=== PATIENT | female | born 1955 | race Caucasian/White ===

== ENCOUNTER → 2017-06-14 | Outpatient (CLI) | payer OTHER | LOC: BMCIMAGING 14:52 | PROVIDERS: ATTEND Obstetrics & Gynecology Gynecology | DX: Z12.31 Encounter for screening mammogram for malignant neoplasm of breast (principal); Z80.3 Family history of malignant neoplasm of breast | CPT/HCPCS: G0202 ==

== ENCOUNTER → 2018-07-23 | Outpatient (CLI) | payer OTHER | LOC: BMCIMAGING 08:34 | PROVIDERS: ATTEND Obstetrics & Gynecology Gynecology | DX: Z12.31 Encounter for screening mammogram for malignant neoplasm of breast (principal) ==

== ENCOUNTER 2018-12-02 22:47 | Emergency (ER) | payer OTHER ==
[2018-12-02 22:50] VITALS: BP 132/78
--- NOTE | 2018-12-02 23:10 | EDPHY ---
H & P Stated Complaint: Burning, painful urination, started today Time Seen by Provider: 12/02/18 22:53 HPI/ROS: Chief Complaint: Urinary urgency and frequency HPI: 63-year-old woman with no significant medical history is presenting with urinary urgency seen frequency which began this evening. Patient states she has had 3 or 4 urinary tract infections in the last year. No fevers or chills. No nausea or vomiting. No back pain. No abdominal pain. ROS: 10 systems were reviewed and were negative except those elements noted in the HPI. PMH: Denies Social History: No smoking, no alcohol, no recreational drug use Family History: non-contributory Physical Exam: Gen: Awake, Alert, No Distress HEENT: Nose: no rhinorrhea Eyes: PERRLA, EOMI Mouth: Moist mucosa Neck: Supple, no JVD Chest: nontender, lungs clear to auscultation Heart: S1, S2 normal, no murmur Abd: Soft, non-tender, no guarding Back: no CVA tenderness, no midline tenderness Ext: no edema, non-tender Skin: no rash Neuro: CN II-XII intact, Sensation grossly intact, Strength 5/5 in bilateral upper and lower extremities - Personal History Current Tetanus Diphtheria and Acellular Pertussis (TDAP): Unsure - Medical/Surgical History Hx Asthma: No Hx Chronic Respiratory Disease: No Hx Diabetes: No Hx Cardiac Disease: No Hx Renal Disease: No Hx Cirrhosis: No Hx Alcoholism: No Hx HIV/AIDS: No Hx Splenectomy or Spleen Trauma: No Other PMH: Denies - Social History Smoking Status: Never smoked Constitutional: Initial Vital Signs Temperature (C) 36.7 C 12/02/18 22:48 Heart Rate 81 12/02/18 22:48 Respiratory Rate 16 12/02/18 22:48 Blood Pressure 132/78 H 12/02/18 22:48 O2 Sat (%) 98 12/02/18 22:48 O2 Delivery Mode Room Air Allergies/Adverse Reactions: meperidine HCl [From Demerol] Allergy (Verified 12/02/18 22:48) Sulfa (Sulfonamide Antibiotics) Allergy (Verified 12/02/18 22:50) Home Medications: Medication Instructions Recorded Cephalexin [Keflex (*)] 500 mg PO Q6H #16 cap 12/02/18 Phenazopyridine HCl [Pyridium] 200 mg PO TID #6 tab 12/02/18 Medical Decision Making ED Course/Re-evaluation: Urinalysis consistent with UTI. Will start on Keflex. Follow up with primary care. - Data Points Laboratory Results: 12/02/18 23:00 Urine Color YELLOW Urine Appearance HAZY Urine pH 6.0 (5.0-7.5) Ur Specific [place] 1.010 (1.002-1.030) Urine Protein 1+ H (NEGATIVE) Urine Ketones NEGATIVE (NEGATIVE) Urine Blood 3+ H (NEGATIVE) Urine Nitrate NEGATIVE (NEGATIVE) Urine Bilirubin NEGATIVE (NEGATIVE) Urine Urobilinogen NEGATIVE EU EU (0.2-1.0) Ur Leukocyte Esterase 3+ H (NEGATIVE) Urine RBC Pending Urine WBC Pending Ur Epithelial Cells Pending Urine Glucose NEGATIVE (NEGATIVE) Departure - Departure Disposition: Home, Routine, Self-Care Clinical Impression: Urinary tract infection Condition: Good Instructions: Urinary Tract Infection in Women (ED) Additional Instructions: Follow up with primary care physician in 3-4 days if symptoms are not improving. Referrals: Saranya Mcnamara MD [Primary Care Provider] - As per Instructions Prescriptions: Cephalexin [Keflex (*)] 500 mg PO Q6H #16 cap Phenazopyridine HCl [Pyridium] 200 mg PO TID #6 tab
[2018-12-02] MEDS ORDERED: CEPHALEXIN 500MG PREPACK#4 BTL TAKEHOME ONE (23:17)
[2018-12-02] MEDS ORDERED: PHENAZOPYRIDINE HCL 200 MG TAB PO ONE (23:18)
== END 2018-12-02 23:32 | disposition home or self-care (01) ==
DX: N39.0 Urinary tract infection, site not specified (principal)